=== PATIENT | male | born 1945 | race Caucasian/White ===

== ENCOUNTER → 2023-05-10 07:41 | Outpatient (REF) | payer BC, SELFPAY | LOC: EMG 07:41 | PROVIDERS: ATTENDING PHYSICIAN Physical Medicine & Rehabilitation | DX: M25.551 Pain in right hip (principal); R20.0 Anesthesia of skin | CPT/HCPCS: 95886; 95910 ==

== ENCOUNTER → 2023-05-23 11:13 | Outpatient (REF) | payer BC, SELFPAY | LOC: RAD 11:13 | PROVIDERS: ATTENDING PHYSICIAN Podiatrist Foot Surgery; FAMILY PHYSICIAN Family Medicine | DX: G57.61 Lesion of plantar nerve, right lower limb (principal) | CPT/HCPCS: 76882 ==

== ENCOUNTER 2023-07-20 18:33 | Emergency (ER) | payer BC, SELFPAY ==
[2023-07-20 18:45] VITALS: BP 134/82
[2023-07-20 19:13] LABS: % Basophils 0.8 % (0-2); % Eosinophils 1.3 % (0-6); % Immature Granulocytes 0.3 % (0-0.5); % Lymphocytes 10.8 % (20.5-51.1); % Monocytes 8.2 % (1.7-9.3); % Neutrophils 78.6 % (42.2-75.2); Absolute Basophils 0.1 10^3/uL (0-0.2); Absolute Eosinophils 0.1 10^3/uL (0-0.7); Absolute Monocytes 0.7 10^3/uL (0.1-0.6); Absolute Neutrophils 7.1 10^3/uL (1.4-6.5); Hematocrit 47.5 % (39.0-52.0); Hemoglobin 16.7 g/dL (13.0-18.0); Mean Corp Hgb Conc. 35.2 g/dL (33.0-37.0); Mean Corpuscular Hgb 33.9 pg (27.0-31.0); Mean Corpuscular Volume 96.3 fL (80.0-94.0); Mean Platelet Volume 10.2 fL (7.4-10.4); Nucleated Red Blood Cells % 0 % (-); Platelet Count 248 10^3/uL (130-400); Red Blood Cell Count 4.93 10^6/uL (4.70-6.10)
[2023-07-20 19:23] LABS: INR 1.29; PT 15.9 Sec (11.4-14.6)
[2023-07-20 19:35] LABS: Troponin I < 0.012 ng/ml
[2023-07-20 19:36] LABS: ALT (SGPT) 22 U/L (0-50); AST (SGOT) 35 U/L (17-59); Albumin 4.5 g/dl (3.5-5.0); Alkaline Phosphatase 77 U/L (38-126); Blood Urea Nitrogen 15 mg/dl (9-20); Calcium 9.8 mg/dl (8.4-10.2); Carbon Dioxide 23 mmol/L (22-30); Chloride 104 mmol/L (98-107); Glucose 122 mg/dl (70-99); Potassium 4.1 mmol/L (3.5-5.1); Sodium 137 mmol/L (135-145); Total Bilirubin 0.8 mg/dl (0.2-1.3); Total Protein 6.9 g/dl (6.3-8.2); eGFR > 60.00
--- NOTE | 2023-07-20 20:58 | ED.GENMED ---
History of Present Illness
General
Chief Complaint: Chest Pain
Time Seen by Provider: 07/20/23 20:44
Travel History
Have you had any contact with someone who has COVID-19?: No
Do you have any symptoms of coronavirus? Fever > 100 degrees, chills, cough, shortness of breath, sore throat, loss of taste or smell, muscle aches, or headache?: No
History of Present Illness
History of Present Illness:
78-year-old with history of A-fib currently on Eliquis, hypertension, and hyperlipidemia presents to the emergency department for evaluation of general sensation of feeling unwell that is been intermittent throughout the day. Although the triage
note does note chest pressure, the patient vehemently denies any chest pain or pressure to me. He states that he began to feel somewhat lightheaded and 'full' throughout his body and noted that his blood pressure was in the 180s over 110s. He
called 911 and was evaluated by paramedics who encouraged him to seek emergency department evaluation. He currently has no symptoms. Has been compliant with his home blood pressure medications and did not take any extra meds. Specifically denies
any chest pain, shortness of breath, or recent fevers
Past History
Past History
ED Past Medical History: Cancer (Prostate), COPD, GERD, HTN and Hypercholesterolemia
ED Past Surgical History: Appendectomy and Other ( patient had a radical robotic prostatectomy here at [place] July 2008, hernia repair, septoplasty.)
Social History
Tobacco: Former smoker
Alcohol: Daily (2 drinks/day)
Drug: None
Personal:
Living: with family
Employment: Retired
Family History
Family History: Other (n/c)
Review of Systems
Review of Systems
Allergies reviewed?: Yes
All Other Systems: ROS reviewed and negative except as documented in HPI and ROS
Phy Exam
Physical Exam
Physical Exam:
GEN: Well appearing, NAD, WDWN
Eyes: PERRLA, EOMs intact, no scleral icterus
HENT: NCAT, oral mucosa moist
Lungs: CTAB, no wheezes, rales, rhonchi, normal chest wall excursion
Cardiac: RRR, no M/R/G, no peripheral edema. Radial pulses 2+ bilat
Abdomen: S, NT, ND, NABS, no masses or hepatosplenomegaly
Neuro: AO x 3
MSK: No gross deformity or ecchymosis.
Skin: No rashes, petechiae. Normal color, no pallor or jaundice.
Psych: Calm, cooperative, proper hygiene
Scores
Heart Score for Chest Pain Patients
STEMI patient?: Not applicable
Course
Orders/Labs/Results
Orders:
Orders
07/20/23 18:35
EKG [Electrocardiogram (*1)] Urgent
Reason for Study: Chest Pain
EKG- Treatment ONCE
07/20/23 18:51
Cardiac Monitoring- Treatment ONCE
IV Insert/Care/Rem.- Treatment PRN
O2 Therapy [RESP] Urgent
Titrate/Wean O2 to maintain O2 sat greater than (%): 90
Special Instructions: Maintain sats >/=90%
Pulse Ox/spot Check [RESP] Urgent
Quantity: 1
Special Instructions: ON ROOM AIR
07/20/23 19:05
Complete Blood Count/With Diff Urgent
Comprehensive Metabolic Panel Urgent
Prothrombin Time Urgent
Troponin I Urgent
Abnormal Lab Results
07/20/23
19:05
MCV 96.3 H fL
(80.0-94.0)
MCH 33.9 H pg
(27.0-31.0)
Absolute Neuts (auto) 7.1 H 10^3/uL
(1.4-6.5)
Absolute Lymphs (auto) 1.0 L 10^3/uL
(1.2-3.4)
Absolute Monos (auto) 0.7 H 10^3/uL
(0.1-0.6)
Neutrophils % 78.6 H %
(42.2-75.2)
Lymphocytes % 10.8 L %
(20.5-51.1)
PT 15.9 H Sec
(11.4-14.6)
Glucose 122 H mg/dl
(70-99)
07/20/23 19:05
07/20/23 19:05
Vital Signs
Initial and Last Documented VS:
Initial Vital Signs
Temp Pulse Resp BP Pulse Ox
97.6 F 96 18 134/82 96
07/20/23 18:45 07/20/23 18:45 07/20/23 18:45 07/20/23 18:45 07/20/23 18:45
Last Documented Vital Signs
Temp Pulse Resp BP Pulse Ox
97.6 F 72 18 122/72 96
07/20/23 18:45 07/20/23 21:22 07/20/23 18:45 07/20/23 21:22 07/20/23 18:45
MDM/Problems Addressed
MDM/Problems Addressed:
Patient denies any chest pain or pressure and his cardiac workup is benign. Symptoms have explained by his elevated blood pressures earlier today however this normalized at the emergency department. Labs are reassuring. Patient reassured and
discharged in stable condition
Comment
Comment:
EKG independently interpreted by me shows normal sinus rhythm at a rate of 94 with first-degree AV block and occasional PVCs, no ST changes concerning for ischemia (ST segment depression V4 through V6 is comparable to EKG from March 08, 2023)
*Critical Care Note
Total Time (30-74mins, 75-104mins- exclusive of procedures): Not Applicable
ED Attending Note
-
Portions of this chart may have been created with voice recognition software.� Occasional wrong word or��sound alike� substitutions may have occurred due to the inherent limitations of voice recognition software.
Discharge Plan
Departure
Patient Disposition: Home (Routine Discharge)
Date of Disposition: 07/20/23
Time of Disposition: 20:58
Patient with high blood pressure during this ER visit?: Yes
Discharge Problem:
Elevated blood pressure reading
Instructions: BLOOD PRESSURE
Prescriptions:
No Action
famotidine 20 MG tablet
20 mg PO HS
amlodipine 10 MG tablet
10 mg PO DAILY
multivitamin Tablet
1 tab PO DAILY
simvastatin 10 mg Tablet
10 mg PO HS
azithromycin 250 mg Tablet
250 mg PO MOWEFR@08
Trelegy Ellipta 200-62.5-25 mcg Blister With Device
1 inh INHALATION R DAILY
guaifenesin 400 mg Tablet
400 mg PO HS
omega 2-yej-asw-fish oil 900-1,400 mg Capsule,Delayed Release(Dr/Ec)
1 cap PO HS
apixaban 5 mg Tablet
5 mg PO BID
lisinopril 20 mg Tablet
20 mg PO BID
Activity Restrictions/Additional Instructions:
Monitor blood pressures daily for 3 to 5 days, if they are consistently greater than 140 over the past consider following up with your primary care physician or your algologist to discuss adjustment of your blood pressure medications
Interventions
Interventions:
*Risk Screen - Suicide Last Done: 07/20/23 18:45
*General Assessment Last Done: 07/20/23 18:45
*Neglect/Abuse Screening Last Done: 07/20/23 18:45
ED- Fall Risk Assessment Last Done: 07/20/23 21:32
*ED COVID-19 Vaccine History Last Done: 07/20/23 21:32
*Nursing Disposition Last Done: 07/20/23 21:32
ED- Cardiac Assessment Last Done: 07/20/23 21:32
Discharge Date and Time
Discharge Date/Time: 07/20/23 21:33
Print Language: PALESTINIAN
[2023-07-20 21:22] VITALS: BP 122/72
== END 2023-07-20 21:33 | disposition home or self-care (01) ==
LOC: EMR 18:33
PROVIDERS: Student in an Organized Health Care Education/Training Program; EMERGENCY PHYSICIAN Emergency Medicine; FAMILY PHYSICIAN Family Medicine
DX: I10 Essential (primary) hypertension (principal); Z79.01 Long term (current) use of anticoagulants; Z87.891 Personal history of nicotine dependence
CPT/HCPCS: 99284; 80053; 84484; 85025; 85610; 93005

== ENCOUNTER → 2023-08-09 12:03 | Outpatient (REF) | payer BC, SELFPAY | LOC: MRI 3T 12:03 | PROVIDERS: ATTENDING PHYSICIAN Physical Medicine & Rehabilitation; FAMILY PHYSICIAN Family Medicine | DX: M54.16 Radiculopathy, lumbar region (principal) | CPT/HCPCS: 72148; 73721 ==

== ENCOUNTER → 2023-11-06 16:02 | Outpatient (REF) | payer BC, SELFPAY | LOC: RAD 16:02 | PROVIDERS: ATTENDING PHYSICIAN Physical Medicine & Rehabilitation; FAMILY PHYSICIAN Family Medicine | DX: S76.011A Strain of muscle, fascia and tendon of right hip, initial encounter (principal) | CPT/HCPCS: 93971 ==

== ENCOUNTER → 2023-11-15 10:51 | Outpatient (REF) | payer BC, SELFPAY | LOC: RAD 10:51 | PROVIDERS: ATTENDING PHYSICIAN Internal Medicine Critical Care Medicine; FAMILY PHYSICIAN Family Medicine | DX: Z87.891 Personal history of nicotine dependence (principal) | CPT/HCPCS: 71271 ==

== ENCOUNTER → 2024-03-19 10:19 | Outpatient (REF) | payer BC, SELFPAY | LOC: RAD 10:19 | PROVIDERS: ATTENDING PHYSICIAN Internal Medicine Critical Care Medicine; FAMILY PHYSICIAN Family Medicine | DX: R91.8 Other nonspecific abnormal finding of lung field (principal) | CPT/HCPCS: 71250 ==

== ENCOUNTER 2024-04-30 11:37 | Emergency (ER) | payer BC, SELFPAY ==
[2024-04-30 11:57] VITALS: BP 128/78
--- NOTE | 2024-04-30 13:33 | ED.MUSCINJ ---
HPI-Injury
General
Chief Complaint: Fall
Time Seen by Provider: 04/30/24 13:25
History of Present Illness-Injury
Initial Injury comments:
Patient presents the emergency department after a fall yesterday. States he missed a step and fell onto the ground. He landed on his right side hitting his elbow and his chest. Denies head strike or loss of consciousness. Complains of
right-sided rib pain and right elbow pain. Denies abdominal pain nausea or vomiting.
Past History
Past History
ED Past Medical History: Cancer (Prostate), COPD, GERD, HTN and Hypercholesterolemia
ED Past Surgical History: Appendectomy and Other ( patient had a radical robotic prostatectomy here at [place] July 2008, hernia repair, septoplasty.)
Social History
Tobacco: Former smoker
Alcohol: Daily (2 drinks/day)
Drug: None
Personal:
Living: with family
Employment: Retired
Family History
Family History: Other (n/c)
Phy Exam
Physical Exam
Physical Exam:
GENERAL APPEARANCE: NAD, well developed/ well nourished
EYES lids/conjunctiva normal
EARS/NOSE/THROAT Mucous membranes moist, uvula midline without oral pharyngeal erythema, exudate or swelling
HEAD/NECK normocephalic atraumatic, neck is supple.
RESPIRATORY respiratory effort normal, speaks in full sentences, no accessory muscle use. Lungs clear to auscultation without rhonchi, wheezes, rales. Right anterior chest wall tenderness. There is minimal bruising but there is no crepitus or
palpable abnormalities.
CARDIAC Regular rate and rhythm, no edema.
ABDOMINAL Soft, ND/NT. No pulsatile masses on exam, rebound tenderness, Hurst sign or pain over Mcburney's point.
MUSCLES/EXTREMITIES right elbow with large skin tear over dorsal surface. Full range of motion of the elbow without pain. No bony tenderness.
SKIN Warm, pink and dry. No rashes
NEUROLOGICAL Speech is clear and appropriate. Normal level of consciousness. 5/5 strength in all extremities.
PSYCH Normal mood and affect. Judgement/competence is appropriate
Injury Course
Orders/Labs/Results
Orders:
Orders
04/30/24 12:05
CR Ribs-right 3 Vw W/pa Chest* Urgent
Comment:
Reason For Exam: fall, pain
04/30/24 13:31
CT Chest With Iv Contrast Urgent
Comment:
Reason For Exam: trauma to chest, on eliquis
04/30/24 13:33
Elbow, 3 View, Right [CR Elbow - Right Min 3 Views] Urgent
Comment:
Reason For Exam: injury
04/30/24 13:54
Complete Blood Count/With Diff Urgent
Comprehensive Metabolic Panel Urgent
LFT [Mehra-Uxqu-Iygngps] Urgent
Abnormal Lab Results
04/30/24
13:54
WBC 10.9 H 10^3/uL
(4.8-10.8)
MCV 98.6 H fL
(80.0-94.0)
MCH 34.0 H pg
(27.0-31.0)
Abs Immat Gran (auto) 0.1 H 10^3/uL
(0-0.05)
Absolute Neuts (auto) 8.7 H 10^3/uL
(1.4-6.5)
Absolute Monos (auto) 0.8 H 10^3/uL
(0.1-0.6)
Neutrophils % 79.9 H %
(42.2-75.2)
Lymphocytes % 10.6 L %
(20.5-51.1)
04/30/24 13:54
04/30/24 13:54
*Critical Care Note
Total Time (30-74mins, 75-104mins- exclusive of procedures): Not Applicable
ED Attending Note
ED Attending Note
ED Attending Note:
Patient presents after mechanical fall yesterday. Complains of right-sided chest pain and right elbow pain. No injuries elsewhere. Given that he is on Eliquis, will CT scan his chest and x-ray of the elbow.
-
Portions of this chart may have been created with voice recognition software.� Occasional wrong word or��sound alike� substitutions may have occurred due to the inherent limitations of voice recognition software.
Discharge Plan
Departure
Patient Disposition: Home (Routine Discharge)
Date of Disposition: 04/30/24
Time of Disposition: 17:20
Patient with high blood pressure during this ER visit?: No
Discharge Problem:
Contusion of rib, Skin tear
Instructions: Contusion (DC), Skin Abrasions (DC)
Prescriptions:
No Action
famotidine 20 MG tablet
20 mg PO HS
amlodipine 10 MG tablet
10 mg PO DAILY
multivitamin Tablet
1 tab PO DAILY
simvastatin 10 mg Tablet
10 mg PO HS
azithromycin 250 mg Tablet
250 mg PO MOWEFR@08
Trelegy Ellipta 200-62.5-25 mcg Blister With Device
1 inh INHALATION R DAILY
guaifenesin 400 mg Tablet
400 mg PO HS
omega 7-jpi-pkm-fish oil 900-1,400 mg Capsule,Delayed Release(Dr/Ec)
1 cap PO HS
apixaban 5 mg Tablet
5 mg PO BID
lisinopril 20 mg Tablet
20 mg PO BID
Referrals:
Liban Nicholson MD [Family Provider] -
Activity Restrictions/Additional Instructions:
Please follow-up with your doctor for recheck in the next few days. Change dressing daily. Discuss pulmonary nodule with your primary doctor
Interventions
Interventions:
*Risk Screen - Suicide Last Done: 04/30/24 11:57
*General Assessment Last Done: 04/30/24 11:57
*ED COVID-19 Vaccine History Last Done: 04/30/24 11:57
*Nursing Disposition Last Done: 04/30/24 17:45
ED-Musculoskeletal Assessment Last Done: 04/30/24 14:00
ED- Neurological Assessment Last Done: 04/30/24 14:00
ED-Skin Assessment Last Done: 04/30/24 14:00
Discharge Date and Time
Discharge Date/Time: 04/30/24 17:53
Print Language: ITALIAN
[2024-04-30 13:53] VITALS: BMI 28.4
[2024-04-30 14:09] LABS: % Basophils 0.6 % (0-2); % Eosinophils 0.8 % (0-6); % Immature Granulocytes 0.5 % (0-0.5); % Lymphocytes 10.6 % (20.5-51.1); % Monocytes 7.6 % (1.7-9.3); % Neutrophils 79.9 % (42.2-75.2); Absolute Basophils 0.1 10^3/uL (0-0.2); Absolute Eosinophils 0.1 10^3/uL (0-0.7); Absolute Immature Granulocytes 0.1 10^3/uL (0-0.05); Absolute Lymphocytes 1.2 10^3/uL (1.2-3.4); Absolute Monocytes 0.8 10^3/uL (0.1-0.6); Absolute Neutrophils 8.7 10^3/uL (1.4-6.5); Hematocrit 50.2 % (39.0-52.0); Hemoglobin 17.3 g/dL (13.0-18.0); Mean Corp Hgb Conc. 34.5 g/dL (33.0-37.0); Mean Corpuscular Volume 98.6 fL (80.0-94.0); Mean Platelet Volume 10.4 fL (7.4-10.4); Nucleated Red Blood Cells % 0 % (-); Platelet Count 220 10^3/uL (130-400); Red Blood Cell Count 5.09 10^6/uL (4.70-6.10); Red Cell Dist. Width 13.3 % (11.5-14.5); White Blood Cell Count 10.9 10^3/uL (4.8-10.8)
[2024-04-30 14:26] LABS: ALT (SGPT) 27 U/L (0-50); AST (SGOT) 45 U/L (17-59); Albumin 4.6 g/dl (3.5-5.0); Alkaline Phosphatase 68 U/L (38-126); Blood Urea Nitrogen 12 mg/dl (9-20); Calcium 9.5 mg/dl (8.4-10.2); Carbon Dioxide 29 mmol/L (22-30); Chloride 102 mmol/L (98-107); Estimated Creatinine Clearance 106 ml/min; Glucose 99 mg/dl (70-99); Potassium 4.5 mmol/L (3.5-5.1); Sodium 139 mmol/L (135-145); Total Bilirubin 0.7 mg/dl (0.2-1.3); Total Protein 6.9 g/dl (6.3-8.2); eGFR > 60.00
--- NOTE | 2024-04-30 17:52 | EDRN ---
Incentive Spirometer to go.
== END 2024-04-30 17:53 | disposition home or self-care (01) ==
LOC: EMR 11:37
PROVIDERS: EMERGENCY PHYSICIAN Emergency Medicine; FAMILY PHYSICIAN Family Medicine
DX: S20.211A Contusion of right front wall of thorax, initial encounter (principal); S51.011A Laceration without foreign body of right elbow, initial encounter; W10.9XXA Fall (on) (from) unspecified stairs and steps, initial encounter; Z87.891 Personal history of nicotine dependence; Z79.01 Long term (current) use of anticoagulants
CPT/HCPCS: 99285; 71101; 71260; 73080; 80053; 80076; 85025; Q9967

== ENCOUNTER 2024-05-08 10:37 | Day surgery (SDC) | payer BC, SELFPAY ==
[2024-05-08 10:50] VITALS: BMI 29.0
[2024-05-08 10:55] VITALS: BP 174/87
[2024-05-08 15:11] VITALS: BP 134/94
--- NOTE | 2024-05-08 15:22 | PTCARENOTE ---
Patient HR dropped to 33. Patient asymptomatic. Heart block noted. MD kasper. at bedside.
[2024-05-08 15:25] VITALS: BP 118/84
[2024-05-08 15:40] VITALS: BP 135/77
--- NOTE | 2024-05-08 15:44 | ITS.CL.IMPLP ---
Human Resources Operations Manager - Implant Loop
Implant Loop
Procedure Report:
Procedure: Explant and re-implant of Loop Recorder.�
78 yrs old man with PAF, 1st degree AV block and Mobitz 1 with asymptomatic bradycardia is here for ILR explant and re-implantation.
Date of the procedure: 05/28/2024
Procedure Physician: Maria Luz Daugherty MD [facility]
Indication: AF and Mobitz I/II AV block and end of battery of previous ILR
Description of the procedure:
Patient was brought to the holding area after informed consent was obtained from the patient. The time out was performed immediately before the procedure.
The left parasternal chest area was prepped and draped in sterile fashion with chlorhexidine prep x 3 times. Lidocaine 1% was injected subcutaneously for local anesthesia.
First the previous implant was palpated and the incision was made on the previous incision. The ILR capsule was cut and the ILR was captured using curved Leni forceps. The old ILR was removed.
The loop recorder was tunneled and then injected into the subcutaneous tissue. The tunneling tool was removed leaving the loop recorder in place. The skin was closed with 4-0 Biosyn sutures and steristrips and a pressure Tegaderm dressing was
placed. There were no immediate complications.
Post procedure, the device was interrogated and showed good detectable P and R waves.
There were no immediate complications.
Device:
Explanted Device:
[employer]; Jot Dx, Model# [id number]; Serial# [id number]
��������� implanted on 03/17/22; explanted: 05/08/24
Implanted Device:
[employer] Assert-IQ EL+; Model: [id number]; Serial #:[id number]
��������������� Implanted: 05/08/24
R wave amplitude: 0.4mV
Final Programming:
��������������� Tachycardia Detection: 150 bpm for 12 beats
�������������� Bradycardia Detection: 30 bpm for 4 beats, Asystole for 4 seconds
�������������� Atrial fibrillation detection: On
��������������� � Continuous burden: 6 min and daily burden 6 hours, AF alert 2 min
������������������������������� Detection qualifier: On (sudden onset; onset Delta 18%)
������������������������������� Bigeminy Qualifier: On
Conclusion:
Successful explant and re-implant of loop recorder.
Recommendation:
Routine post-insertion loop care.
[2024-05-08 15:55] VITALS: BP 134/53
== END 2024-05-08 16:17 | disposition home or self-care (01) ==
LOC: CATH 10:37
PROVIDERS: ATTENDING PHYSICIAN Internal Medicine Cardiovascular Disease; FAMILY PHYSICIAN Family Medicine
DX: I48.0 Paroxysmal atrial fibrillation (principal); I44.0 Atrioventricular block, first degree; I44.1 Atrioventricular block, second degree; Z09 Encounter for follow-up examination after completed treatment for conditions other than malignant neoplasm
CPT/HCPCS: 33285; C1764

== ENCOUNTER → 2024-05-26 11:03 | Outpatient (REF) | payer BC, MEDICARE, SELFPAY | LOC: RCS 11:03 | PROVIDERS: ATTENDING PHYSICIAN Internal Medicine; FAMILY PHYSICIAN Family Medicine | DX: I48.0 Paroxysmal atrial fibrillation (principal); I44.1 Atrioventricular block, second degree; I10 Essential (primary) hypertension; I35.1 Nonrheumatic aortic (valve) insufficiency | CPT/HCPCS: 93306 ==

== ENCOUNTER → 2024-07-15 11:13 | Outpatient (REF) | payer BC, MEDICARE, SELFPAY | LOC: RAD 11:13 | PROVIDERS: ATTENDING PHYSICIAN Family Medicine | DX: M25.561 Pain in right knee (principal); M25.562 Pain in left knee | CPT/HCPCS: 73564 ==

== ENCOUNTER → 2024-09-23 11:37 | Outpatient (REF) | payer BC, MEDICARE, SELFPAY | LOC: RAD 11:37 | PROVIDERS: ATTENDING PHYSICIAN Internal Medicine Critical Care Medicine; FAMILY PHYSICIAN Family Medicine | DX: R91.8 Other nonspecific abnormal finding of lung field (principal) | CPT/HCPCS: 71250 ==

== ENCOUNTER → 2025-03-17 10:51 | Outpatient (REF) | payer BC, SELFPAY | LOC: RAD 10:51 | PROVIDERS: ATTENDING PHYSICIAN Internal Medicine Critical Care Medicine; FAMILY PHYSICIAN Family Medicine | DX: R91.8 Other nonspecific abnormal finding of lung field (principal) | CPT/HCPCS: 71250 ==